=== PATIENT | male | born 1945 | race African-American/Black ===

== ENCOUNTER → 2021-02-02 | Day surgery (SDC) | payer MEDICARE, OTHER ==
[~2021-02-02] VITALS: Ht 172.7 cm; Wt 86.6 kg
[~2021-02-02] MED LIST: AMLODIPINE BESY10 MG PO; ASPIRIN EC81 M1 PO; BRILINTA60 MG PO; CRESTOR20 MG PO; DIOVAN160 MG PO; LOPRESSOR50 MG PO; NITROQUIK SL0.4 MG SL
== END | disposition home or self-care (01) ==
LOC: FAS 08:59
DX: Z12.11 Encounter for screening for malignant neoplasm of colon (principal); D12.5 Benign neoplasm of sigmoid colon; I10 Essential (primary) hypertension; E78.00 Pure hypercholesterolemia, unspecified; Z86.010 Personal history of colon polyps; Z95.5 Presence of coronary angioplasty implant and graft; Z95.1 Presence of aortocoronary bypass graft; Z88.8 Allergy status to other drugs, medicaments and biological substances; Z79.82 Long term (current) use of aspirin; Z79.02 Long term (current) use of antithrombotics/antiplatelets; Z72.89 Other problems related to lifestyle; Z87.891 Personal history of nicotine dependence
CPT/HCPCS: J2250; J2704; J7120